=== PATIENT | female | born 1945 | race Caucasian/White ===

== ENCOUNTER 2017-04-13 09:03 | Day surgery (SDC) | payer MEDICARE ==
[2017-04-13] MEDS ORDERED: Lactated Ringer's 500 ML IV ONE (10:33)
[2017-04-13 11:07] VITALS: TEMP 97
[2017-04-13] MEDS ORDERED: Propofol 10 mg/ml Inj (20 ML) ONE (12:57)
[2017-04-13 13:45] VITALS: BP 102/51; PULSE 67; RESP 11; O2SAT 99
== END 2017-04-13 14:25 | disposition home or self-care (01) ==
LOC: H.ENDO 09:03
PROVIDERS: ATTEND Internal Medicine Gastroenterology
DX: Z12.11 Encounter for screening for malignant neoplasm of colon (principal); R10.13 Epigastric pain; K64.0 First degree hemorrhoids; K29.70 Gastritis, unspecified, without bleeding; K29.50 Unspecified chronic gastritis without bleeding
CPT/HCPCS: 43239; 45378; 88305; 88313; 88342; J2001; J2704; J7120